=== PATIENT | female | born 1995 | race Caucasian/White ===

== ENCOUNTER 2021-12-21 00:16 | Emergency (ER) | payer BC, SELFPAY ==
[2021-12-21 00:19] VITALS: BP 136/84; PULSE 100; RESP 17; TEMP 36.6; O2SAT 100
--- NOTE | 2021-12-21 00:31 | PC.NURSE ---
STEMI declared at 2320, 12/21/2021.Patient stable, Vital signs taken, EKG done , aspirin ,azithromycin and NS bolus given. 00:08 Cardiac microbiological laboratory technician nurses came to assess and transport patient to cardiac lab. Bedside report given , patient placed on cardio-pulmonary monitoring and transported to the cardiac lab . No patient verbalization of complaints of discomfort noted.
--- NOTE | 2021-12-21 00:32 | ED.NAVMDI ---
HPI - Nausea/Vomiting/Diarrhea General Chief complaint: Nausea/Vomiting/Diarrhea Stated complaint: Abd pain, n/v Time Seen by Provider: 12/21/21 00:19 History of Present Illness HPI Narrative: 26-year-old female presents the emergency room with acute onset of nausea vomiting that began today. Patient states that she has been taking care of a family member, with similar symptoms. Patient states multiple episodes of vomiting, no episodes of diarrhea. Denies fever. Associated with headache and muscle aches. Related Data Allergies Allergy/AdvReac Type Severity Reaction Status Date / Time azithromycin [From Zithromax] Allergy Palpitation Verified 12/21/21 00:35 s Latex, Natural Rubber Allergy Rash Verified 12/21/21 00:35 Review of Systems Review of Systems: CONSTITUTIONAL: Denies fever, chills, or sweats. EYES: Denies visual changes, redness, or discharge. ENT: Denies rhinorrhea, congestion, sore throat, or otalgia. CARDIOVASCULAR: Denies chest pain, palpitations, or edema. RESPIRATORY: Denies cough or dyspnea. GASTROINTESTINAL: Reports nausea, vomiting. Denies diarrhea. GENITOURINARY: Denies dysuria or hematuria. SKIN: Denies rash or itching. MUSCULOSKELETAL: Denies back pain, joint pain, or myalgia. NEUROLOGIC: Denies headache, numbness, dizziness, or weakness. PSYCHIATRIC: Denies anxiety or depression. Exam Narrative: GENERAL: Well-appearing, well-nourished, and in no acute distress. HEAD: Normocephalic, atraumatic. EYES: PERRLA and EOMI. ENT: Nares clear, no rhinorrhea or epistaxis. Mucous membranes dry. NECK: Supple. No adenopathy or masses. No carotid bruits or JVD CHEST: Clear to auscultation. No respiratory distress. No wheezes rales or rhonchi HEART: Regular rate and rhythm. No murmur heard. Normal peripheral pulses. ABDOMEN: Soft, diffuse tenderness, nondistended, normal active bowel sounds. EXTREMITIES: Normal range of motion. No edema. SKIN: Warm, dry, no rash. NEURO: No focal deficits. Alert and oriented x3. PSYCH: Normal mood and affect. Course Course Emergency Course: Patient given 2 L of normal saline, 4 mg of Zofran, and Toradol. Patient responded well to treatment. Reports nausea has resolved. Able to take p.o. fluids. Vital Signs Vital signs: Vital Signs Temperature 36.6 C 12/21/21 00:19 Pulse Rate 100 12/21/21 00:19 Respiratory Rate 17 12/21/21 00:19 Blood Pressure 136/84 12/21/21 00:19 Pulse Oximetry 100 12/21/21 00:19 Temperature 36.6 C 12/21/21 00:19 Pulse Rate 100 12/21/21 00:19 Respiratory Rate 17 12/21/21 00:19 Blood Pressure 136/84 12/21/21 00:19 Pulse Oximetry 100 12/21/21 00:19 MDM - Nausea/Vomiting/Diarrhea MDM Narrative Medical decision making narrative: 26-year-old female presented emergency room with acute onset of nausea and vomiting. Stated that she take care of a family member who was experiencing the same symptoms. CBC shows a slightly elevated white count likely due to the multiple episodes of vomiting. CMP is unremarkable. Patient refusing to give UA sample. Patient responded well to fluids and antiemetics. Medical Records Attestation: I reviewed the patient's medical records. Lab Data Attestation: I reviewed the patient's lab results. Discharge Plan Discharge Clinical Impression: Vomiting Patient Disposition: Home, Self-Care Condition: Stable Instructions: Antibiotic Form Additional Instructions: Recommend clear liquid diet for the first 24 hours. May take Zofran 5 to 10 minutes prior to fluid challenge. Advance her diet as tolerated. Prescriptions: New ondansetron 4 mg tablet,disintegrating 4 mg PO Q8H Qty: 20 RF: 0 Follow-up/Referrals: PHYSICIAN NOT ON STAFF,NONSTAFF [Primary Care Provider] - Time of Disposition: 01:43
--- NOTE | 2021-12-21 00:35 | PC.NURSE ---
Pt unable to void at this time.
[2021-12-21] MEDS: SODIUM CHLORIDE 0.9% IV 2,000 ML 999 ML IV CONT (00:36)
[2021-12-21] MEDS: ONDANSETRON INJ 4 MG/2 ML VIAL IV PUSH (00:37)
[2021-12-21] MEDS: KETOROLAC 30 MG/ML VIAL (*BKC) IV PUSH (00:37)
[2021-12-21 00:40] LABS: Basophils Percent Auto 0.3 % (0.2-1.2); Eosinophils Percent Auto 0.2 % (0-4.4); Hematocrit 43.5 % (37.0-47.0); Immature Granulocyte Absolute 0.02 K/mm3 (0.00-0.031); Immature Granulocyte Percent A 0.2 % (0-0.5); Lymphocytes Absolute Auto 2.39 K/mm3 (0.9-3.2); Lymphocytes Percent Auto 22.7 % (18.3-44.2); Mean Corpuscular HGB Conc 32.2 g/dl (32-36); Mean Corpuscular Hemoglobin 31.3 pg (26-34); Mean Corpuscular Volume 97.1 fl (80-100); Mean Platelet Volume 10.7 fl (7.4-10.4); Monocytes Absolute Auto 0.8 K/mm3 (0.1-0.6); Neutrophils Absolute Auto 7.2 K/mm3 (1.3-6.7); Neutrophils Percent Auto 68.6 % (45.5-73.1); Platelet Count Result 255 k/mm3 (150-375); Red Blood Count 4.48 M/mm3 (4.2-5.4); Red Cell Distribution Width 12.7 % (11.5-14.5); White Blood Count 10.5 K/mm3 (4.5-10.0)
[2021-12-21 00:51] LABS: Alanine Aminotransferase 14 U/L (4-35); Albumin Level 4.8 g/dL (3.5-5.1); Alkaline Phosphatase 95 U/L (38-126); Anion Gap 9 mmol/L (8-16); Aspartate Amino Transferase 20 U/L (14-36); Bilirubin,Total 1.2 mg/dL (0.2-1.3); Blood Urea Nitrogen 12 mg/dL (7-17); Calcium 9.2 mg/dL (8.4-10.2); Carbon Dioxide 27 mmol/L (22-30); Chloride 105 mmol/L (98-107); Estimated Glomerular Filt Rate > 60; Glucose 97 mg/dL (65-110); Potassium 3.5 mmol/L (3.4-5.0); Sodium 141 mmol/L (137-145)
[2021-12-21] MEDS: PANTOPRAZOLE SODIUM IV 40 MG VIAL IV PUSH (01:21)
[2021-12-21 01:45] VITALS: BP 107/67
[2021-12-21 03:05] LABS: Add Urine Microscopic? YES; Amorphous Sediment Urine Few; Appearance Urine Cloudy (Clear); Bacteria Urine Trace /hpf; Bilirubin Urine Negative (Negative); Blood Urine Negative (Negative); Color Urine Amber (Yellow); Glucose Urine UA Negative (Negative); Ketones Urine 1+ mg/dL (Negative); Leukocyte Esterase Ur Negative LEU/UL (Negative); Mucus Urine Heavy /lpf; Nitrate Urine Negative (Negative); Protein Urine 1+ mg/dL (Negative); Squamous Epithelial Cell Urine Many /hpf (Few)
[2021-12-21 03:06] LABS: Specific Grav Ur 1.032 (1.001-1.035)
[2021-12-21 03:35] VITALS: PULSE 82; RESP 16; O2SAT 100
== END 2021-12-21 03:37 | disposition home or self-care (01) ==
PROVIDERS: Emergency Provider Nurse Practitioner Family
DX: R11.2 Nausea with vomiting, unspecified (principal)
CPT/HCPCS: 36415; 80053; 81001; 81025; 85025; 87086; 87088; 96361; 96374; 96375; 99284; C9113; J1885; J2405; J7030